=== PATIENT | male | born 1965 | race Caucasian/White ===

== ENCOUNTER → 2018-05-25 | Outpatient (CLI) | payer BC | END | disposition home or self-care (01) | LOC: LAB 17:14 | PROVIDERS: ATTEND Internal Medicine Nephrology | DX: E87.1 Hypo-osmolality and hyponatremia (principal); S14.109D Unspecified injury at unspecified level of cervical spinal cord, subsequent encounter; S06.9X9D Unspecified intracranial injury with loss of consciousness of unspecified duration, subsequent encounter; X58.XXXD Exposure to other specified factors, subsequent encounter | CPT/HCPCS: 80053; 81003; 83735; 83935; 84300; 84439; 84443; 85025 ==